=== PATIENT | male | born 1945 | race Caucasian/White ===

== ENCOUNTER → 2022-07-27 14:11 | Outpatient (BNVA) | payer MEDICARE, SELFPAY | PROVIDERS: Visit Provider Dermatology | DX: L57.0 Actinic keratosis (principal); D04.39 Carcinoma in situ of skin of other parts of face; D04.61 Carcinoma in situ of skin of right upper limb, including shoulder; Z87.891 Personal history of nicotine dependence; Z85.828 Personal history of other malignant neoplasm of skin; L81.4 Other melanin hyperpigmentation; L57.8 Other skin changes due to chronic exposure to nonionizing radiation | CPT/HCPCS: 17004; 17262; 17281; 99203 ==